=== PATIENT | female | born 1980 ===

== ENCOUNTER 2017-01-23 18:35 | Emergency (ER) | payer SELFPAY ==
[2017-01-23 18:58] VITALS: BP 139/83
--- NOTE | 2017-01-23 19:48 | UC ---
Ear Complaint HPI - HPI Summary HPI Summary: pt presents with c/o left ear, jaw, throat and neck pain. Pt reports that she has a history of otitis media as an adult not as a child. Pt report sthat she feels that her left ear "feels full" and that the pain radiates from her left neck to left side of jaw, neck and upper shoulder. Pt c/o generalized malaise and body aches. - History of Current Complaint Chief Complaint: UCEar Stated Complaint: EAR/NECK PAIN Time Seen by Provider: 01/23/17 19:42 Hx Obtained From: Patient Hx Last Menstrual Period: 01/09/17 ?: No Onset/Duration: Gradual Onset, Lasting Days - 10 days., Still Present, Worse Since - onset Severity Initially: Mild Severity Currently: Moderate Alleviating Factors: Nothing Associated Signs/Symptoms: Positive: Hearing Loss, URI Symptoms Related History: Seasonal Allergies - unsure - Allergies/Home Medications Allergies/Adverse Reactions: Allergies Allergy/AdvReac Type Severity Reaction Status Date / Time Amoxicillin Allergy Intermediate skin rash Verified 01/23/17 18:58 PMH/Surg Hx/FS Hx/Imm Hx Previously Healthy: Yes - history of OM - Surgical History Surgical History: None - Family History Known Family History: Positive: Cardiac Disease - Social History Occupation: Employed Full-time Lives: With Family Alcohol Use: Occasionally Substance Use Type: None Smoking Status (MU): Heavy Every Day Tobacco Smoker Amount Used/How Often: 1 ppd Have You Smoked in the Last Year: Yes Household Exposure Type: Cigarettes Review of Systems Constitutional: Fatigue Skin: Negative Eyes: Negative ENT: Sore Throat, Ear Ache - left ear, Other - left side jaw pain/ache Respiratory: Negative Cardiovascular: Negative Gastrointestinal: Negative Genitourinary: Negative Motor: Negative Neurovascular: Negative Musculoskeletal: Myalgia - left neck and upper shoulder Neurological: Negative Psychological: Negative All Other Systems Reviewed And Are Negative: Yes Physical Exam Triage Information Reviewed: Yes Appearance: Ill-Appearing Vital Signs: Initial Vital Signs Temp 98.2 F 01/23/17 18:52 Pulse 80 01/23/17 18:52 Resp 16 01/23/17 18:52 BP 139/83 01/23/17 18:52 Pulse Ox 98 01/23/17 18:52 Vital Signs Reviewed: Yes Eye Exam: Normal ENT Exam: Other ENT: Positive: Nasal congestion, TM bulging - left TM, TM red - left Dental Exam: Normal Neck exam: Other Neck: Positive: Supple, Tenderness @ - left side of neck , genedralized Respiratory Exam: Normal Cardiovascular Exam: Normal Abdomen Description: Positive: Nontender Musculoskeletal Exam: Normal Neurological Exam: Normal Psychological Exam: Normal Skin Exam: Normal Ear Complaint Course/Dx - Differential Dx/Diagnosis Differential Diagnosis/HQI/PQRI: Mastoiditis, Otitis Media, Other - serous otitis media allergies Provider Diagnoses: serous otitis media. allergies Discharge - Discharge Plan Condition: Stable Disposition: HOME Prescriptions: Azithromycin TAB* [Zithromax TAB (Z-[place]) 250 mg #6 tabs] 2 tab PO .TODAY, THEN 1 DAILY #1 [place] Cetirizine-Pseudoephedrine [Zyrtec-D Allergy/[place]esti] 1 tab PO DAILY #7 tab Patient Education Materials: Earache (ED), Serous Otitis Media (ED) Referrals: No Primary Care Phys,NOPCP [Primary Care Provider] -
== END 2017-01-23 19:55 | disposition home or self-care (01) ==
LOC: UCCORT 18:35
DX: H65.92 Unspecified nonsuppurative otitis media, left ear (principal); J31.0 Chronic rhinitis; Z88.1 Allergy status to other antibiotic agents; F17.210 Nicotine dependence, cigarettes, uncomplicated
CPT/HCPCS: 99202; G0463